=== PATIENT | female | born 1955 | race Two or more races ===

== ENCOUNTER 2019-02-20 09:00 | Day surgery (SDC) | payer OTHER ==
[2019-02-16 17:08] VITALS: BMI 27.1
--- NOTE | 2019-02-20 11:16 | OP ---
Operative Note - Note: Operative Date: 02/20/19 Pre-Operative Diagnosis: 63yo with thick endometrium Operation: Hysteroscopy, Myomectomy, D&C Findings: Right cornual mass, fibroid - 3cm Post-Operative Diagnosis: Same as Pre-op (Submucosal mass) Surgeon: Lorie Park Anesthesiologist/DIRECTOR OF ACQUISITION MARKETING: Rhoda Thompson MD Anesthesia: MAC Estimated Blood Loss (mls): 10 Drains & Tubes with Location: Fluid defficit 400cc Drains, Volume Out (mls): 300 Fluid Volume Replaced (mls): 300 Operative Report Dictated: Yes
--- NOTE | 2019-02-20 11:16 | HP ---
History & Physical Update - History History: No Change - Physical Physical: No Change - Assessment Assessment: No Change - Plan Plan: No Change (H&P uptodate, consent signed and witnessed)
[2019-02-20] MEDS ORDERED: ONDANSETRON 4 MG/2 ML VIAL IVPUSH PRN ×2 (11:17→12:24)
[2019-02-20] MEDS ORDERED: IBUPROFEN 800 MG/8 ML IJ IVPB PRN (11:17)
[2019-02-20] MEDS ORDERED: oxyCODONE HCL 5 MG TABLET PO PRN (11:17)
[2019-02-20] MEDS ORDERED: IBUPROFEN 600 MG TABLET (FP) PO PRN (11:17)
[2019-02-20] MEDS ORDERED: ELECTROLYTE-148 SOLN 1,000 ML IV SCH (11:30)
[2019-02-20] MEDS ORDERED: MIDAZOLAM HCL 2 MG/2 ML SINGLE DOSE VIAL ONE (11:35)
[2019-02-20] MEDS ORDERED: PROPOFOL 20 ML ONE (11:36)
[2019-02-20] MEDS ORDERED: SUCCINYLCHOLINE CHLORIDE 200 MG/10 ML SYRINGE ONE (11:36)
[2019-02-20] MEDS ORDERED: LACTATED RINGERS SOLUTION 1,000 ML IV SCH (12:30)
[2019-02-20 13:58] VITALS: TEMP 98.3
[2019-02-20 14:23] VITALS: BP 139/91; PULSE 57
--- NOTE | 2019-02-20 20:48 | OP ---
DATE OF OPERATION: 02/20/2019 PREOPERATIVE DIAGNOSIS: A 63-year-old with thick endometrium. OPERATION: Hysteroscopy, myomectomy, dilatation and curettage. FINDINGS: Right cornual mass, likely fibroid, approximately 3 cm in size. POSTOPERATIVE DIAGNOSIS: A 63-year-old with thick endometrium, submucosal mass. SURGEON: Lorie Park MD ANESTHESIOLOGIST: FLAVIA Cruz- ANESTHESIA: MAC. DESCRIPTION OF OPERATIVE PROCEDURE: After assuring informed consent, patient was brought to the operating room where she was placed in dorsal lithotomy position. Perineum and vagina were prepped and draped in sterile fashion. A Robles retractor was placed into the vagina. Cervix grasped with a single-tooth tenaculum and dilated to accommodate 6.3-mm Symphion hysteroscope. Symphion hysteroscope was assembled, primed, and wide balanced. It was introduced into the uterus, and the entire endometrial cavity was found to be occupied by submucosal mass, likely fibroid. The resecting device was introduced through the operative channel of hysteroscope, and the submucosal mass was resected. Subsequently, excellent hemostasis was noted. All instruments were removed from uterus, cervix, and vagina. Instrument and sponge count was correct x2. Patient tolerated the procedure well. Estimated blood loss 10 mL. Patient received 300 mL of IV fluids, put out 300 mL of urine, and fluid deficit was 400 mL. Patient tolerated the procedure well and was brought to the recovery room in stable, extubated condition. Milind [id number]
--- NOTE | 2019-02-21 15:31 | PATH ---
Surgical Pathology Report Patient Name: MENDOZA HICKEY [facility]. Rec. #: [id number] /Age/Gender: 1955 (Age: 63) / F Account: [id number] Location: [facility] Taken: 02/20/2019 Received: 02/20/2019 Reported: 02/21/2019 Physicians: Lorie Park M.D. Specimen(s) Received ENDOMETRIAL POLYP Clinical History Thickened endometrium Final Diagnosis ENDOMETRIAL POLYP, POLYPECTOMY, DILATION AND CURETTAGE: ENDOMETRIAL POLYP, STRIPS OF ENDOMETRIAL GLANDS CONSISTENT WITH ATROPHIC ENDOMETRIUM, AND RARE FIBROMUSCULAR TISSUE. Electronically Signed Rita Chin M.D. Gross Description Received in formalin labeled "endometrial polyp," is a 1.8 x 1.6 x 0.3 cm aggregate of felix-pink soft tissue fragments. The formalin is filtered and the specimen is entirely submitted in one cassette. DL/02/20/2019 saudi/02/20/2019
== END 2019-02-20 14:24 | disposition home or self-care (01) ==
LOC: JASU-SURG 09:00
PROVIDERS: ATTEND Obstetrics & Gynecology
PROC: 0UDB7ZX Extraction of Endometrium, Via Natural or Artificial Opening, Diagnostic (ICD-10-PCS; principal; 2019-02-20 11:00)
PROC: 0UJD8ZZ Inspection of Uterus and Cervix, Via Natural or Artificial Opening Endoscopic (ICD-10-PCS; 2019-02-20 11:00)
DX: N84.0 Polyp of corpus uteri (principal)
CPT/HCPCS: 71046-TC-FY; 88305-TC; 94760